=== PATIENT | female | born 1955 | race Caucasian/White ===

== ENCOUNTER → 2018-09-23 | Outpatient (CLI) | payer BC ==
--- NOTE | 2018-09-23 16:26 | KCIC ---
EXAM: CT Abdomen and Pelvis without IV contrast CLINICAL HISTORY: Hematuria right flank pain. COMPARISON: none TECHNIQUE: Helical CT of the abdomen and pelvis without intravenous contrast. Axial, coronal and sagittal reformatted images were generated. PQRS compliance statement - One or more of the following individualized dose reduction techniques were utilized for this study: 1. Automated exposure control 2. Adjustment of the mA and/or kV according to patient size 3. Use of iterative reconstruction technique FINDINGS: Lack of intravenous contrast limits evaluation of solid organs, vasculature, and lymph nodes. Lower chest: Subpleural linear reticular opacities are seen in the medial right lower lobe. Abdomen and Pelvis: Borderline decreased attenuation the liver may be seen with hepatic steatosis. Gallbladder is decompressed. No biliary ductal dilatation. Adrenal glands are normal. Pancreas is unremarkable. No focal renal lesion. No hydronephrosis. Kidneys are normal in size and shape. A 3 mm right lower pole and left upper pole hyperdense renal lesion may represent hemorrhagic or proteinaceous cyst. No renal, ureteral or bladder calculi are seen. No hydronephrosis or hydroureter. Moderate colonic stool content. Appendix is normal. No abnormal small or large bowel dilatation. Colonic diverticula are seen. No evidence for acute diverticulitis. Partially distended bladder is unremarkable. No abdominal or pelvic lymphadenopathy or ascites. No abdominal or pelvic lymphadenopathy by size criteria. Bones: Visualized osseous structures are unremarkable. Degenerative changes are seen at the symphysis pubis. Lower lumbar spine degenerative changes are noted. IMPRESSION: 1. No renal tract calculi 2. Appendix is normal. 3. No evidence for bowel obstruction 4. Colonic diverticulosis, without evidence of acute diverticulitis. 5. 3 mm right lower pole and left upper pole hyperdense renal lesion may represent hemorrhagic or proteinaceous cyst. 6. Relative low-attenuation of the liver may be seen with hepatic steatosis. Electronically signed by: Zain Harding MD (09/23/2018 4:22 PM) [facility]
== END | disposition home or self-care (01) ==
LOC: KCIC CT 14:49
PROVIDERS: ATTEND Specialist
DX: K57.30 Diverticulosis of large intestine without perforation or abscess without bleeding (principal)
CPT/HCPCS: 74176

== ENCOUNTER → 2018-11-28 | Outpatient (CLI) | payer BC ==
--- NOTE | 2018-11-28 15:45 | KCIC ---
RENAL COMPLETE BILATERAL: 11/28/2018 2:15 PM Indication: 63 years old Female. Abnormal [address] findings. Hyperdense lesions on CT. Comparison: None. FINDINGS: Sonographic evaluation of the kidneys is performed utilizing grayscale and color Doppler. Right kidney: Size: 12.0 x 4.4 x 5.9cm. Collecting System: No hydronephrosis. No renal calculi detected. Parenchyma: Normal echotexture and morphology. No focal contour deforming renal mass. Left kidney: Size: 12.1 x 5.5 x 5.2cm. Collecting System: No hydronephrosis. No renal calculi detected. Parenchyma: Normal echotexture and morphology. No focal contour deforming renal mass. Urinary bladder: Unremarkable. Bilateral ureteral jets are visualized. Proximal aorta measures 2.5 cm. Mid aorta measures 1.6 cm. Distal aorta measures 1.5 cm. IMPRESSION: 3 mm [address]dense lesions on CT are not visualized by ultrasound. A six-month follow-up CT renal mass protocol may be of benefit. Electronically signed by: Norma Kerns MD (11/28/2018 3:41 PM) [facility]
== END | disposition home or self-care (01) ==
LOC: KCIC US 14:06
PROVIDERS: ATTEND Specialist
DX: R19.09 Other intra-abdominal and pelvic swelling, mass and lump (principal)
CPT/HCPCS: 76770

== ENCOUNTER → 2020-04-25 | Outpatient (CLI) | payer BC ==
[2020-04-25 09:11] LABS: CHOLESTEROL/HDL RATIO 2.8
== END | disposition home or self-care (01) ==
LOC: LAB 08:09
PROVIDERS: ATTEND Internal Medicine Cardiovascular Disease
DX: E78.5 Hyperlipidemia, unspecified (principal)
CPT/HCPCS: 36415; 80061

== ENCOUNTER → 2021-06-06 | Outpatient (CLI) | payer BC ==
[2021-06-06 08:54] LABS: CHOLESTEROL/HDL RATIO 2.4
== END ==
LOC: LAB 08:20
PROVIDERS: ATTEND Internal Medicine Cardiovascular Disease
DX: E78.5 Hyperlipidemia, unspecified (principal); I25.10 Atherosclerotic heart disease of native coronary artery without angina pectoris
CPT/HCPCS: 36415; 80061